=== PATIENT | female | born 1985 | race Hispanic/Latino ===

== ENCOUNTER 2018-07-24 06:58 | Outpatient (CLI) | payer MEDICAID ==
--- NOTE | 2018-07-24 07:46 | ULT ---
TRANSABDOMINAL PELVIC ULTRASOUND: DATE: 07/24/18. PROVIDED CLINICAL HISTORY: Pelvic pain. FINDINGS: Uterus measures about 9.1 x 3.6 x 5.3 cm and demonstrates a normal transabdominal sonographic appeara nce. Endometrial thickness is about 7 mm. The right ovary measures about 3.2 x 1.7 x 2.2 cm and demonstrates a normal sonographic appearance. The left ovary measures about 3.4 x 2.2 x 2.5 cm and demonstrates a normal transabdominal sonographic appearance. Color Doppler and spectral analysis of the ovarian waveforms reveals flow bilaterally. There is no evidence for significant free pelvic fluid. IMPRESSION: Unremarkable transabdominal pelvic ultrasound. POS: [facility]
== END 2018-07-24 06:59 | disposition home or self-care (01) ==
LOC: BICULT 06:58
PROVIDERS: ATTEND Nurse Practitioner Women's Health
DX: R10.2 Pelvic and perineal pain (principal)
CPT/HCPCS: 76856; 93976

== ENCOUNTER 2020-04-18 05:45 | Outpatient (CLI) | payer OTHER ==
[2020-04-18 10:05] LABS: #Basophils 0.1 thou/uL (0.0-0.2); #Eosinphils 0.3 thou/uL (0.0-0.7); #Lymphocytes 2.1 thou/uL (1.20-3.40); #Monocytes 0.4 thou/uL (0.11-0.59); #Neutrophils 4.1 thou/uL (1.40-6.50); %Basophils 0.8 % (0.0-1.0); %Monocytes 6.3 % (0.0-10.0); %Neutrophils 58.9 % (42.0-75.0); Hemoglobin 14.9 g/dL (12.0-16.0); Mean Corpuscular HGB CONC 33.7 g/dL (32.0-36.0); Mean Corpuscular Hemoglobin 28.7 pg (27.0-31.0); Mean Corpuscular Volume 85.3 fL (78.0-98.0); Mean Platelet Volume 10.1 fL (7.4-10.4); Platelet Count 276 thou/uL (130-400); RBC Distribution Width 12.9 % (11.5-14.5); Red Blood Cell (RBC) Count 5.18 mill/uL (4.20-5.40); White Blood Cell (WBC) Count 6.9 thou/uL (4.8-10.8)
[2020-04-18 11:05] LABS: ALT (SGPT) 76 U/L (8-55); AST (SGOT) 41 U/L (5-34); Albumin 4.5 g/dL (3.5-5.0); Alkaline Phosphatase 98 U/L (40-110); Anion Gap 16 mmol/L (10-20); BUN (Urea Nitrogen) 10 mg/dL (7.0-18.7); Bilirubin, Direct 0.3 mg/dL (0.1-0.3); Bilirubin, Total 0.7 mg/dL (0.2-1.2); Calc. Creatinine Clearance 0 mL/min (70-130); Calcium 9.3 mg/dL (7.8-10.44); Carbon Dioxide 19 mmol/L (22-29); Chloride 106 mmol/L (98-107); Estimated GFR-MDRD Greater than 90; Glucose 99 mg/dL (70-105); Protein, Total 7.3 g/dL (6.0-8.3); Sodium 137 mmol/L (136-145)
[2020-04-19 16:02] LABS: SARS-CoV-2 MS2 Positive; SARS-CoV-2 N Gene Negative; SARS-CoV-2 S Gene Negative; SARS-CoV-2 orf1ab Negative
== END 2020-04-18 05:46 | disposition home or self-care (01) ==
LOC: LABBT 05:45
PROVIDERS: ATTEND Surgery
DX: Z01.812 Encounter for preprocedural laboratory examination (principal); Z11.59 Encounter for screening for other viral diseases; K80.20 Calculus of gallbladder without cholecystitis without obstruction
CPT/HCPCS: 80048; 80076; 85025; 87635; U0003

== ENCOUNTER 2020-04-21 07:10 | Day surgery (SDC) | payer OTHER ==
[2020-04-15 14:50] VITALS: BMI 50.8
[2020-04-21] MEDS ORDERED: Iopamidol 50 ML FS ONE ×2 (07:53→08:55)
[2020-04-21] MEDS ORDERED: Lidocaine 1% w/Epinephrine 1:100K 20 ML VIAL ONE (07:53)
[2020-04-21] MEDS ORDERED: Bupivacaine 0.25% HCL 30 ML VIAL ONE (07:53)
[2020-04-21] MEDS ORDERED: Fentanyl 100 MCG/2 ML VIAL ONE ×4 (09:05→10:53)
[2020-04-21] MEDS ORDERED: SUGAMMADEX SODIUM 200 MG/2 ML VIAL ONE (10:08)
[2020-04-21] MEDS ORDERED: Promethazine HCl 25 MG/ML VIAL ONE (10:18)
--- NOTE | 2020-04-21 10:20 | OP ---
DATE OF PROCEDURE: 04/21/2020 PREOPERATIVE DIAGNOSIS: Symptomatic gallstones. POSTOPERATIVE DIAGNOSIS: Symptomatic gallstones. PROCEDURE PERFORMED: Laparoscopic cholecystectomy with cholangiogram. ANESTHESIA: General. ESTIMATED BLOOD LOSS: Minimal. COMPLICATIONS: None. SPECIMEN: Gallbladder. FINDINGS: Normal cholangiogram. DESCRIPTION OF PROCEDURE: The patient was taken to the operating room and laid supine on the operating room table. After general anesthetic was obtained, the abdomen was prepped and draped in a sterile fashion. Curved incision was made below the umbilicus. Cautery was dissected down to and score the fascia. Abdominal cavity was entered bluntly using a Denisa clamp. Holding stitch of PDS was placed on each side of fascia. Cecilio trocar was placed. High-flow pneumoperitoneum was obtained. An upper midline 5 mm port and 2 right upper quadrant 5 mm ports were placed under direct visualization. The gallbladder was retracted from the gallbladder fossa. The peritoneum was opened anteriorly and posteriorly. The critical view triangle was seen showing only the cystic duct and cystic artery branching medial to lateral and no other branching structures. A clip was placed high on the cystic duct and a small ductotomy was made just proximal to that. A cholangiocatheter was brought in through a separate stab incision and placed in the cystic duct and a cholangiogram was performed, which showed good contrast flow into the duodenum without obstruction. Cholangiocatheter was removed and 2 clips were placed proximally and one distally and the cystic duct was cut using laparoscopic scissors. The cystic artery was taken using 2 clips proximally and one clip distally, cut using laparoscopic scissors. The gallbladder was retracted out of the gallbladder fossa using cautery, placed in an Endo Catch bag and brought out through the Cecilio. There was no bleeding or bile in the liver bed. The right upper quadrant was irrigated using sterile solution. All port sites were infiltrated using local anesthetic. All ports were removed under camera visualization. Pneumoperitoneum was let down. PDS was used to close the fascial defect below the umbilicus. All incisions were closed using 4-0 Monocryl and Dermabond. The patient was sent to Recovery in stable condition. All instrument counts, needle counts, and lap counts were correct. Job ID: [id number] [id number]
--- NOTE | 2020-04-21 10:41 | RAD ---
EXAM: Cholangiogram in surgery HISTORY: Cholelithiasis COMPARISON: None FINDINGS: Limited intraoperative fluoroscopic views were taken during a cholangiogram in surgery. The common bile duct is normal in caliber with mollie filling defects which may represent air bubbles . No leakage from the common bile duct. Contrast passes into the duodenum. No abnormality of the intrahepatic bile ducts. IMPRESSION: Unremarkable cholangiogram
[2020-04-21] MEDS ORDERED: Ondansetron PF 4 MG/2 ML Vial ONE (10:44)
[2020-04-21] MEDS ORDERED: Lidocaine 1% PF 5 ML VIAL ONE (10:44)
[2020-04-21] MEDS ORDERED: Rocuronium Bromide 10 MG/ML (10ML VIAL) ONE (10:44)
[2020-04-21] MEDS ORDERED: Succinylcholine Chloride 20 MG/ML 10 ml SYRINGE FS ONE (10:44)
[2020-04-21] MEDS ORDERED: Glycopyrrolate 0.2 MG/ML 5 ML SYRINGE ONE (10:44)
[2020-04-21] MEDS ORDERED: Dexamethasone 20 MG/5 ML VIAL ONE (10:44)
[2020-04-21] MEDS ORDERED: PROPOFOL 200 MG/20 ML VIAL ONE (10:44)
[2020-04-21] MEDS ORDERED: HYDROcodone/Acetaminophen 5/325 mg Tablet ONE (11:54)
== END 2020-04-21 13:23 | disposition home or self-care (01) ==
LOC: SDC 07:10
PROVIDERS: ATTEND Surgery
PROC: 0FT44ZZ Resection of Gallbladder, Percutaneous Endoscopic Approach (ICD-10-PCS; principal; 2020-04-21)
PROC: BF101ZZ Fluoroscopy of Bile Ducts using Low Osmolar Contrast (ICD-10-PCS; principal; 2020-04-21)
DX: K80.10 Calculus of gallbladder with chronic cholecystitis without obstruction (principal); F32.9 Major depressive disorder, single episode, unspecified; F41.9 Anxiety disorder, unspecified
CPT/HCPCS: 47532; 88304; J0690; J1100; J2001; J2405; J2550; J2704; J3010; Q9967; S0020

== ENCOUNTER 2024-05-13 10:04 | Outpatient (CLI) | payer OTHER | END 2024-05-13 10:05 | disposition home or self-care (01) | LOC: BICRAD 10:04 | PROVIDERS: ATTEND Family Medicine | DX: M53.3 Sacrococcygeal disorders, not elsewhere classified (principal); M48.061 Spinal stenosis, lumbar region without neurogenic claudication; M48.07 Spinal stenosis, lumbosacral region | CPT/HCPCS: 72100 ==